=== PATIENT | female | born 1995 | race Asian ===

== ENCOUNTER 2025-05-18 15:33 | Inpatient (IN) | payer OTHER ==
[2025-05-18] MEDS: DEXTROSE 5%-LACTATED RINGERS 1,000 ML IV SCH (16:30)
[2025-05-18] MEDS: SODIUM CHLORIDE 1,000 ML IV ONE (17:00)
[2025-05-18 17:12] LABS: ABSOLUTE IMMATURE GRANULOCYTES 0.37 x10^3/uL (0.0-0.031); BASOPHILS # 0.05 x10^3/uL (0.01-0.08); EOSINOPHIL % 0.0 % (0.7-5.8); EOSINOPHILS # 0.01 x10^3/uL (0.04-0.36); MCHC 31.7 g/dl (32.2-35.5); MEAN CELL VOLUME 81.5 fl (79.4-94.8); MEAN PLT VOLUME 10.8 fl (9.4-12.3); MONOCYTE # 0.80 x10^3/uL (0.24-0.86); MONOCYTE % 3.4 % (4.7-12.5); RDW 13.9 % (12.1-16.5)
[2025-05-18 17:21] LABS: INR 1.02 (0.83-1.09); PROTHROMBIN TIME (PATIENT) 11.1 SEC (9.7-13.0)
[2025-05-18 17:24] LABS: ACTIVATED PTT 23.7 SECONDS (25.2-36.5)
[2025-05-18 17:39] VITALS: BMI 26.0
[2025-05-18] MEDS ORDERED: NALOXONE HCL 0.4 MG/ML VIAL IVPUSH PRN (19:59)
[2025-05-18] MEDS ORDERED: FENTANYL/BUPIVACAINE/NS/PF - PCEA - 50 ML DISP.SYRIN EP ONE (20:01)
[2025-05-18] MEDS ORDERED: BUPIVACAINE HCL/PF 0.25% (2.5MG/ML) 10 ML VIAL ONE (20:04)
[2025-05-18] MEDS ORDERED: FENTANYL CITRATE/PF 50 MCG/ML VIAL ONE (20:04)
[2025-05-18] MEDS: SODIUM CHLORIDE 1,000 ML IV STA (20:10)
[2025-05-18] MEDS: FENTANYL/BUPIVACAINE/NS/PF - PCEA - 50 ML DISP.SYRIN EP SCH (20:20)
[2025-05-18] MEDS ORDERED: OXYTOCIN 30 UNITS in 0.9% NS 30 UNIT/500 ML INFUS.BAG IVPB ONE (22:15)
[2025-05-18] MEDS: OXYTOCIN 30 UNITS in 0.9% NS 30 UNIT/500 ML INFUS.BAG IVPB SCH (22:30)
[2025-05-19] MEDS ORDERED: OXYTOCIN 20 UNITS in 0.9% NS 20 UNIT/1,000 ML INFUS.BAG IV ONE (00:21)
[2025-05-19] MEDS ORDERED: LIDOCAINE HCL 1% PRESERVATIVE FREE - 30ML VIAL ONE (00:22)
[2025-05-19 02:37] LABS: CORD BASE EXCESS -8.6 mmol/L (0-2); CORD HCO3 17.4 mmHg (20-29); CORD PCO2 38.3 mmHg (30-78); CORD pH 7.275 (7.14-7.44)
[2025-05-19] MEDS: OXYTOCIN 10 UNITS/ML VIAL IM ONE (02:40)
[2025-05-19] MEDS: OXYTOCIN 20 UNITS in 0.9% NS 20 UNIT/1,000 ML INFUS.BAG IV SCH (02:40)
[2025-05-19] MEDS ORDERED: WITCH HAZEL 50% (TUCKS) 40 PAD/JAR PAD TP PRN (03:36)
[2025-05-19] MEDS ORDERED: BENZOCAINE 28 GM HEMORRHOIDAL OINTMENT TP PRN (03:36)
[2025-05-19] MEDS: IBUPROFEN 600 MG TABLET (FP) PO PRN (07:13)
[2025-05-20 04:18] LABS: EPI CELLS 19 /uL (0-25.1); HYALINE CASTS 2 /uL (0-3.1); URINE APPEARANCE CLEAR; URINE BACTERIA 85 /uL (0-1359); URINE BILIRUBIN NEGATIVE (NEGATIVE); URINE COLOR YELLOW; URINE GLUCOSE (UA) NEGATIVE (NEGATIVE); URINE KETONE TRACE (NEGATIVE); URINE LEUK ESTERASE 2+ (NEGATIVE); URINE NITRITE NEGATIVE (NEGATIVE); URINE PROTEIN TRACE (NEGATIVE); URINE RBC 73 /uL (0-23.9); URINE UROBILINOGEN 0.2 mg/dL (0.2-1.0)
[2025-05-20] MEDS: ACETAMINOPHEN 325 MG TABLET (FP) PO PRN (05:49)
[2025-05-20] MEDS: CLINDAMYCIN 900 MG PREMIX IVPB 900 MG/50 ML BAG IVPB SCH ×2 (06:31→22:30)
[2025-05-20] MEDS: WATER IVPB SCH (07:22)
[2025-05-20] MEDS: GENTAMICIN IVPB SCH (07:22)
[2025-05-20] MEDS: DEXTROSE 5% IVPB SCH (07:22)
[2025-05-20 07:54] LABS: MCHC 31.7 g/dl (32.2-35.5); MEAN CELL VOLUME 82.1 fl (79.4-94.8); MEAN PLT VOLUME 10.8 fl (9.4-12.3); RDW 14.4 % (12.1-16.5)
[2025-05-20] MEDS ORDERED: SODIUM CHLORIDE 1,000 ML IV STA (08:18)
[2025-05-20 09:16] LABS: LACTIC ACID 3.2 mmol/L (0.4-2.0)
[2025-05-20 09:50] LABS: CO2 18 mmol/L (21-32); CREATININE 0.8 mg/dL (0.55-1.3); GLUCOSE,RANDOM 111 mg/dL (74-106); SGOT/AST 22 U/L (15-37); SGPT/ALT 13 U/L (13-61); TOT PROT 4.5 g/dl (6.4-8.2)
[2025-05-20 10:12] LABS: ALK PHOS 147 U/L (45-117)
[2025-05-20] MEDS: BISMUTH SUBSALICYLATE 524 MG/30 ML PO PRN (10:33)
[2025-05-20] MEDS: KCL 10 MEQ IVPB 10 MEQ/100 ML INFUS.BAG IVPB SCH (10:49)
[2025-05-20] MEDS: FERROUS SO4 325 MG TABLET (FP) PO SCH (12:50)
[2025-05-20] MEDS: POTASSIUM CHLORIDE ORAL LIQUID 20 MEQ/15 ML PO SCH (12:50)
[2025-05-20] MEDS: LOPERAMIDE HCL 2 MG CAPSULE PO PRN (14:30)
[2025-05-20] MEDS: ACETAMINOPHEN 1000 MG/100 ML BAG IVPB PRN (21:20)
[2025-05-21] MEDS ORDERED: CLINDAMYCIN 900 MG PREMIX IVPB 900 MG/50 ML BAG IVPB ONE (05:22)
[2025-05-21 08:07] LABS: MCHC 31.7 g/dl (32.2-35.5); MEAN CELL VOLUME 83.3 fl (79.4-94.8); MEAN PLT VOLUME 10.8 fl (9.4-12.3); RDW 14.6 % (12.1-16.5)
[2025-05-21 08:17] LABS: CO2 24.0 mmol/L (21-32); GLUCOSE,RANDOM 139.0 mg/dL (74-106)
[2025-05-21 08:20] LABS: CREATININE 0.5 mg/dL (0.55-1.3); SGOT/AST 15.0 U/L (15-37); SGPT/ALT 13.0 U/L (13-61)
[2025-05-21 08:21] LABS: TOT PROT 4.2 g/dl (6.4-8.2)
[2025-05-21 08:25] LABS: ALK PHOS 110.0 U/L (45-117)
[2025-05-21 10:31] VITALS: RESP 18
[2025-05-21 10:49] LABS: LDH 168.0 U/L (84-246)
[2025-05-21 11:08] LABS: BASOPHILS # 0.02 x10^3/uL (0.01-0.08); EOSINOPHIL % 0.7 % (0.7-5.8); EOSINOPHILS # 0.12 x10^3/uL (0.04-0.36); MONOCYTE # 0.67 x10^3/uL (0.24-0.86); MONOCYTE % 4.1 % (4.7-12.5)
[2025-05-21 12:20] LABS: LDH 204.0 U/L (84-246)
[2025-05-21] MEDS: FERROUS SO4 325 MG TABLET (FP) PO SCH (13:16)
[2025-05-21] MEDS: PENICILLIN V POTASSIUM 500 MG TABLET PO SCH (13:16)
[2025-05-22 13:41] VITALS: BP 106/68; PULSE 111; TEMP 97.8
== END 2025-05-22 15:50 | disposition home or self-care (01) | DRG 806 ==
LOC: JDEL 15:33 → JLDR 16:26 → J3W 05-19 05:00
PROVIDERS: ADMIT Obstetrics & Gynecology Maternal & Fetal Medicine; ATTEND Obstetrics & Gynecology Maternal & Fetal Medicine
PROC: 10E0XZZ Delivery of Products of Conception, External Approach (ICD-10-PCS; principal; 2025-05-19)
PROC: 0KQM0ZZ Repair Perineum Muscle, Open Approach (ICD-10-PCS; 2025-05-19)
PROC: 0W8NXZZ Division of Female Perineum, External Approach (ICD-10-PCS; 2025-05-19)
DX: O70.1 Second degree perineal laceration during delivery (principal); O86.4 Pyrexia of unknown origin following delivery; Z37.0 Single live birth; K52.9 Noninfective gastroenteritis and colitis, unspecified; O26.893 Other specified pregnancy related conditions, third trimester; O26.53 Maternal hypotension syndrome, third trimester; Z3A.39 39 weeks gestation of pregnancy
CPT/HCPCS: 36415; 36600; 59409; 71046-TC-FY; 80053; 81003; 82247; 82248; 82803; 83010; 83605; 83615; 85025; 85610; 85730; 86780; 86850; 86880; 86900; 86901; 86922; 87040; 87077; 87086